=== PATIENT | male | born 1970 | race Caucasian/White ===

== ENCOUNTER 2018-03-09 16:28 | Emergency (ER) | payer MEDICAID ==
[~2018-03-09] VITALS: Ht 165.1 cm; Wt 62.3 kg
[2018-03-09 16:42] VITALS: BP 125/79
== END 2018-03-09 17:32 | disposition home or self-care (01) ==
LOC: ED 17:00
DX: K02.9 Dental caries, unspecified (principal); F17.200 Nicotine dependence, unspecified, uncomplicated; F12.10 Cannabis abuse, uncomplicated
CPT/HCPCS: 99283

== ENCOUNTER 2019-06-03 01:02 | Emergency (ER) | payer MEDICAID ==
[~2019-06-03] VITALS: Ht 162.6 cm; Wt 61.7 kg
[2019-06-03 01:04] VITALS: BP 140/79
== END 2019-06-03 01:55 | disposition home or self-care (01) ==
LOC: ED 01:49
DX: K02.9 Dental caries, unspecified (principal); R51 Headache; F17.210 Nicotine dependence, cigarettes, uncomplicated; F12.10 Cannabis abuse, uncomplicated; Z76.0 Encounter for issue of repeat prescription
CPT/HCPCS: 99283

== ENCOUNTER 2019-06-16 11:57 | Emergency (ER) | payer MEDICAID ==
[~2019-06-16] VITALS: Ht 160 cm; Wt 60.4 kg
[2019-06-16 12:03] VITALS: BP 107/70
--- NOTE | 2019-06-16 13:05 | NUR ---
PT FEET SOAKED IN WARM WATER AND BETADINE PER ERP INSTRUCTIONS. PT TOLERATING WELL. DENIES ANY FURTHER NEEDS AT THIS TIME.
== END 2019-06-16 13:35 | disposition home or self-care (01) ==
LOC: ED 12:30
DX: L03.116 Cellulitis of left lower limb (principal); L03.115 Cellulitis of right lower limb
CPT/HCPCS: 99283

== ENCOUNTER 2020-10-20 14:06 | Emergency (ER) | payer MEDICAID ==
[~2020-10-20] VITALS: Ht 165.1 cm; Wt 58.1 kg
[2020-10-20 14:24] VITALS: BP 133/84
== END 2020-10-20 15:01 | disposition home or self-care (01) ==
LOC: ED 15:00
DX: K02.9 Dental caries, unspecified (principal); K08.89 Other specified disorders of teeth and supporting structures
CPT/HCPCS: 99283

== ENCOUNTER 2020-11-06 15:06 | Emergency (ER) | payer MEDICAID ==
[~2020-11-06] VITALS: Ht 165.1 cm; Wt 54.6 kg
--- NOTE | 2020-11-06 15:14 | NUR ---
NO ANSWER FROM TRIAGE
--- NOTE | 2020-11-06 15:23 | NUR ---
NO ANSWER FROM TRIAGE
--- NOTE | 2020-11-06 15:55 | NUR ---
PT AMBULATORY TO ROOM 34 W/ C/O DENTAL INFECTION AND C/O THINKING HE MAY HAVE BURNED THE TOP OF HIS LUNGS PT STATES HE HAD SEEN A VAPE PEN SITTING AT A PARK FOR ABOUT A MONTH SO PT DECIDED TO PICK IT UP AND SMOKE WHATEVER WAS INSIDE IT. DENIES ANY CP/SOB/BURNING. PT STATES COUGH FROM TIME TO TIME. NOTHING CONSTANT. PT STATES HE ALSO NEEDS ABX FOR DENTAL INFECTION. STATES HE HAS NOT BEEN ON ABX BUT WANTS SOME. PT RESTING ON GURNEY. NADN. MONITORS APPLIED. VSS. TAMMI RIBERA T BEDSIDE FOR EVAL.
[2020-11-06 15:57] VITALS: BP 127/69
--- NOTE | 2020-11-06 16:00 | NUR ---
PT REQUESTING SULFA ABX RX. WHEN EDUCATED ON SULFA MEDICATION PT STATES "I WILL MAKE IT WORK. WHAT MAKES IT WORK SO YOU CAN GIVE ME SULFA ANTIBIOTICS. I HAVE A UTI THEN". PT DENIES UTI SX AND EDUCATED BY TAMMI RIBERA AGAIN ON ABX RX PT STATES "FINE THEN I HAVE AN ASS INFECTION. HEMMORHOID INFECTION". PT AGAIN EDUCATED ON SULFA MEDICATION. TAMMI RIBERA REMAINS AT BEDSIDE DISCUSSING ABX EDUCATION W/ PT.
== END 2020-11-06 16:20 | disposition home or self-care (01) ==
LOC: ED 16:10
DX: R06.02 Shortness of breath (principal); R05 Cough
CPT/HCPCS: 99281